=== PATIENT | male | born 1930 | race Caucasian/White ===

== ENCOUNTER 2017-06-22 14:14 | Outpatient (CLI) | payer MEDICARE, OTHER | END 2017-06-22 14:15 | disposition critical access hospital (66) | LOC: EMS 14:14 | PROVIDERS: ATTEND Surgery | DX: S51.812A Laceration without foreign body of left forearm, initial encounter (principal); W01.118A Fall on same level from slipping, tripping and stumbling with subsequent striking against other sharp object, initial encounter; Y93.89 Activity, other specified; Y92.012 Bathroom of single-family (private) house as the place of occurrence of the external cause | CPT/HCPCS: A0425; A0429 ==

== ENCOUNTER 2017-06-22 14:36 | Emergency (ER) | payer MEDICARE, OTHER ==
[2017-06-22] MEDS ORDERED: TETANUS/DIPHTHERIA/PERTUSSIS 0.5 ML SYRINGE IM ONE ×2 (14:44→14:48)
[2017-06-22] MEDS ORDERED: LIDOCAINE MPF 2%-EPI 1:200000 20 ML VIAL ONE (14:45)
--- NOTE | 2017-06-22 15:06 | ED Physician Documentation ---
PD HPI UPPER EXT INJURY - Stated complaint Stated Complaint: FALL/ ARM LAC - Chief complaint Chief Complaint: Laceration - History obtained from History obtained from: Patient - History of Present Illness Location: Other (R handed gentleman, not up-to-date on tetanus, he dropped a toilet that he was going to install and it broke and he has a large laceration on left forearm from the broken porcelain.) Pain level max: 0 Review of Systems Constitutional: reports: Reviewed and negative Nose: reports: Reviewed and negative Throat: reports: Reviewed and negative PD PAST MEDICAL HISTORY - Past Medical History Past Medical History: Yes Cardiovascular: Hypertension - Past Surgical History Past Surgical History: Yes HEENT: Tonsil/Adenoidectomy - Present Medications Home Medications: Ambulatory Orders Medication Instructions Recorded Confirmed Amlodipine Besylate 5 mg PO DAILY 06/22/17 06/22/17 Carvedilol 12.5 mg PO BID 06/22/17 06/22/17 Lipase/Protease/Amylase [Creon Dr 6,000 mg TID 06/22/17 06/22/17 6,000 Units Capsule] Losartan [Cozaar] 100 mg DAILY 06/22/17 06/22/17 - Allergies Allergies/Adverse Reactions: Allergies Allergy/AdvReac Type Severity Reaction Status Date / Time No Known Drug Allergies Allergy Verified 06/22/17 14:40 - Social History Does the pt smoke?: No Smoking Status: Never smoker Does the pt drink ETOH?: No Does the pt have substance abuse?: No - Immunizations Immunizations: TDAP >10years/unknown PD ED PE NORMAL - Vitals Vital signs reviewed: Yes - General General: Alert and oriented X 3, No acute distress - Extremities Extremities: Other (On the anterior medial left forearm there is an 8 cm oblique laceration down to but not involving muscle, he is neurovascularly intact distal to this be both before and after suturing.) - Neuro Neuro: Alert and oriented X 3, Normal speech - Psych Psych: Normal mood, Normal affect Results - Vitals Vitals: Vital Signs - 24 hr 06/22/17 14:36 Temperature 36.7 C Heart Rate 69 Respiratory 17 Rate Blood Pressure 128/68 O2 Saturation 97 Procedures - Laceration (location) L forearm Length in cm: 8 Wound type: Linear Neurovascular status: Sensory intact, Motor intact, Vascular intact Tendon involvement: Tendon intact Anesthesia: Lidocaine 2% with epi Wound Preparation: Irrigated copiously NS Skin layer closure: Nylon, Running, Size #-0 - enter number (3-0) Other: Patient tolerated well, No complications, Tetanus booster given Complexity: Simple Departure - Departure Disposition: 01 Home, Self Care Clinical Impression: Laceration Condition: Good Record reviewed to determine appropriate education?: Yes Instructions: ED Laceration Ext Sutr Stap Tape Comments: Come back for any signs of infection which would include: Redness, swelling, drainage, increased pain, or fevers. Follow-up with your physician in 10-14 days for suture removal.
[2017-06-22 15:16] VITALS: BP 124/64
== END 2017-06-22 15:13 | disposition home or self-care (01) ==
LOC: EDUNIT# → ED 14:36
DX: S51.812A Laceration without foreign body of left forearm, initial encounter (principal); W45.8XXA Other foreign body or object entering through skin, initial encounter; Z23 Encounter for immunization; I10 Essential (primary) hypertension
CPT/HCPCS: 12004; 90471; 99283

== ENCOUNTER 2017-06-28 10:21 | Emergency (ER) | payer MEDICARE, OTHER ==
--- NOTE | 2017-06-28 11:59 | ED Physician Documentation ---
History of Present Illness - Stated complaint Stated Complaint: L ARM LAC RECHECK - Chief complaint Chief Complaint: Ext Problem - History obtained from History obtained from: Patient - Additonal information Additional information: This patient sustained a long linear laceration to the right arm after falling on a broken toilet. A running suture was placed during his last emergency department visit and he returns today seeking evaluation for some soft tissue swelling around the laceration. He denies any other symptoms such as numbness, tingling, fever, warmth or increased tenderness of the laceration. He is supposed to have the sutures removed on . Review of systems: For pertinent positive and negatives in the review of systems please see the history of present illness, otherwise all other systems have been reviewed and are negative. Dragon disclaimer: Parts of this medical record were created using voice recognition technology. Because of the inherent limitations of this system, occasional same sounding word substitutions do occur and persist despite proofreading. Please read the document for context. Review of Systems Constitutional: denies: Fever Musculoskeletal: reports: Extremity swelling PD PAST MEDICAL HISTORY - Past Medical History Cardiovascular: Hypertension - Past Surgical History Past Surgical History: Yes HEENT: Tonsil/Adenoidectomy - Present Medications Home Medications: Ambulatory Orders Medication Instructions Recorded Confirmed Amlodipine Besylate 5 mg PO DAILY 06/22/17 06/28/17 Carvedilol 12.5 mg PO BID 06/22/17 06/28/17 Lipase/Protease/Amylase [Creon Dr 6,000 mg TID 06/22/17 06/28/17 6,000 Units Capsule] Losartan [Cozaar] 100 mg DAILY 06/22/17 06/28/17 - Allergies Allergies/Adverse Reactions: Allergies Allergy/AdvReac Type Severity Reaction Status Date / Time No Known Drug Allergies Allergy Verified 06/22/17 14:40 - Social History Does the pt smoke?: No Smoking Status: Never smoker Does the pt drink ETOH?: No Does the pt have substance abuse?: No - Immunizations Immunizations: TDAP >10years/unknown PD ED PE NORMAL - General General: Alert and oriented X 3, No acute distress, Well developed/nourished - Extremities Extremities: Other (Patient has a large linear laceration held together with a running suture. There is a small hematoma present under the wound however there is no evidence of infection. Tenderness and neurologic function was rechecked of the hand and it is normal) - Neuro Neuro: No motor deficit, No sensory deficit Results - Vitals Vitals: Vital Signs - 24 hr 06/28/17 10:24 Temperature 36.5 C Heart Rate 60 Respiratory 16 Rate Blood Pressure 150/68 H O2 Saturation 100 Oxygen O2 Source Room air PD MEDICAL DECISION MAKING - ED course Complexity details: reviewed old records, re-evaluated patient ED course: Patient is a pleasant 86-year-old male who sustained a large laceration closed with a running suture. On examination he has a small hematoma present. The laceration is healing beautifully. I recommended just watching and waiting at this time. There is no evidence of infection on my examination. Neurologic function is perfectly normal on my exam. Disposition: To home Clinical impression: 1. Post incision suture hematoma Departure - Departure Disposition: 01 Home, Self Care Clinical Impression: Hematoma, Pain in extremity Condition: Good Instructions: ED Hematoma Follow-Up: your,physician [Other]
[2017-06-28 12:13] VITALS: BP 131/62
== END 2017-06-28 12:10 | disposition home or self-care (01) ==
LOC: ED 10:21
DX: L76.32 Postprocedural hematoma of skin and subcutaneous tissue following other procedure (principal); I10 Essential (primary) hypertension
CPT/HCPCS: 99282; 99283

== ENCOUNTER 2019-03-20 16:24 | Outpatient (CLI) | payer OTHER ==
--- NOTE | 2019-03-20 19:50 | MRI Report ---
Reason: LEFT KNEE PAIN WITH SWELLING AND POSS LIGAMENT INJ Procedure Date: 03/20/2019 Accession Number: [id number] / [id number] Procedure: MRI - Knee LT W/O CPT Code: FULL RESULT: EXAM: LEFT KNEE MRI WITHOUT CONTRAST EXAM DATE: 03/20/2019 05:47 PM. CLINICAL HISTORY: Left knee pain with swelling and possible ligament injury. COMPARISON: None. TECHNIQUE: Multiplanar, multisequence T1-weighted and fluid-sensitive sequences of the knee without contrast. Other: None. FINDINGS: Bones: No fractures or subluxations. No marrow edema. No bone lesions. Articular Cartilage: Mild chondromalacia lateral patellar facet. Moderate chondromalacia mid and posterior medial femoral condyle. Medial Meniscus: Complex tear posterior horn medial meniscus. Lateral Meniscus: The lateral meniscus is intact. Cruciate Ligaments: The anterior and posterior cruciate ligaments are intact. Collateral Ligaments: The medial collateral and lateral collateral ligamentous structures are intact. Tendons: The quadriceps, patellar, semimembranosus, and popliteus tendons are unremarkable. Musculature: No edema or fatty atrophy. Other: Moderate quantity of fluid patellar recesses. No popliteal cyst. No loose bodies. The medial and lateral retinacula are intact. Edema infrapatellar fat pad. Subcutaneous edema anterior to the patellar tendon. Small fluid collection gastrocnemius semimembranosus bursa. Fluid collection popliteus recess 2.2 cm in height and 1.0 x 1.8 cm in transverse dimension. IMPRESSION: 1. Negative for ACL tear. 2. Complex tear posterior horn medial meniscus. 3. Moderate quantity of joint fluid patellar recesses. RADIA
== END 2019-03-20 16:25 | disposition home or self-care (01) ==
LOC: DI 16:24
PROVIDERS: ATTEND Internal Medicine
DX: S83.232A Complex tear of medial meniscus, current injury, left knee, initial encounter (principal); M25.462 Effusion, left knee

== ENCOUNTER 2021-05-16 11:24 | Outpatient (CLI) | payer OTHER ==
--- NOTE | 2021-05-16 12:09 | XRAY Report ---
PROCEDURE: Shoulder 3 View LT INDICATIONS: L SHOULDER PX TECHNIQUE: 4 views of the shoulder were acquired. COMPARISON: None. FINDINGS: Bones: No acute fractures or dislocations. There are mild degenerative changes of the left acromioc lavicular joint. There are moderate degenerative changes of the left glenohumeral joint with marginal osteophyte formation and degenerative subchondral cystic changes. Moderate joint space narrowing of the glenohumeral joint. There is also minimal cephalad migration of the left humeral head with minima l loss of the subacromial space. Findings may represent sequela of chronic rotator cuff tear. No susp icious bony lesions. Visualized ribs appear intact. Coracoclavicular and acromioclavicular interval s are maintained. Soft tissues: No suspicious soft tissue calcifications. IMPRESSION: 1. Left shoulder without acute fracture or dislocation. 2. Mild left acromioclavicular osteoarthrosis. 3. Advanced degenerative changes of the left glenohumeral joint with joint space narrowing and mild c ephalad migration of the humeral head. This may be in part due to patient positioning/projection; how ever, sequela of chronic rotator cuff tear may have a similar appearance. Reviewed by: Jason Cabrera MD on 05/16/2021 12:08 PM PDT Approved by: Jason Cabrera MD on 05/16/2021 12:08 PM PDT Station ID: [id number]
--- NOTE | 2021-05-16 15:45 | XRAY Report ---
PROCEDURE: Shoulder 3 View RT INDICATIONS: R SHOULDER PX TECHNIQUE: 4 views of the shoulder were acquired. COMPARISON: None. FINDINGS: Bones: No acute fractures or dislocations. Moderate degenerative changes of the right acromioclavicu lar joint. Coracoclavicular and acromioclavicular intervals are maintained. There is mild cephalad mi gration of the right humeral head with significant narrowing of the subacromial joint space. No susp icious bony lesions. Visualized ribs appear intact. Soft tissues: No suspicious soft tissue calcifications. IMPRESSION: Right shoulder without acute fracture or dislocation. Moderate degenerative changes of the right acromioclavicular joint. 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 Reviewed by: Jason Cabrera MD on 05/16/2021 3:43 PM PDT Approved by: Jason Cabrera MD on 05/16/2021 3:43 PM PDT Station ID: [id number]
== END 2021-05-16 11:25 | disposition home or self-care (01) ==
LOC: DI.N 11:24
PROVIDERS: ATTEND Physician Assistant
DX: M25.512 Pain in left shoulder (principal); M25.511 Pain in right shoulder; M19.012 Primary osteoarthritis, left shoulder; M19.011 Primary osteoarthritis, right shoulder